=== PATIENT | female | born 1960 | race Caucasian/White ===

== ENCOUNTER → 2017-04-14 | Outpatient (CLI) | payer OTHER ==
[~2017-04-14] VITALS: Ht 162.6 cm; Wt 59.4 kg
[~2017-04-14] MED LIST: CYTOMEL 5MCG TA5 MCG PO; HYDROCODONE-AP1 EAC6 PO; IBUPROFEN 400400 M1 PO; LEVOTHYROXIN0.025 MG PO
[2017-04-14 10:00] VITALS: BP 100/70
== END | disposition home or self-care (01) ==
LOC: PAIN 09:16
DX: M54.16 Radiculopathy, lumbar region (principal); E03.9 Hypothyroidism, unspecified; Z79.899 Other long term (current) drug therapy

== ENCOUNTER → 2017-05-05 | Outpatient (CLI) | payer OTHER ==
[~2017-05-05] VITALS: Ht 162.6 cm; Wt 59.4 kg
[2017-05-05 10:39] VITALS: BP 102/67
== END | disposition home or self-care (01) ==
LOC: PAIN 07:14
DX: M54.16 Radiculopathy, lumbar region (principal); G89.29 Other chronic pain; M47.896 Other spondylosis, lumbar region; Z98.890 Other specified postprocedural states

== ENCOUNTER → 2018-04-08 | Outpatient (CLI) | payer OTHER | LOC: MRI 08:59 | DX: M47.896 Other spondylosis, lumbar region (principal); M54.16 Radiculopathy, lumbar region; M51.27 Other intervertebral disc displacement, lumbosacral region ==